=== PATIENT | male | born 1990 | race African-American/Black ===

== ENCOUNTER 2017-03-10 16:30 | Emergency (ER) | payer BC ==
[~2017-03-10] VITALS: Ht 193 cm; Wt 100.2 kg
[2017-03-10 17:09] LABS: HEMATOCRIT 45.6 % (38.0-50.0); MCHC 34.2 G/DL (30.0-36.0); MCV 90.5 FL (86-99); MEAN PLAT.VOLUME 9.6 uM^3 (9.0-12.4); PLATELET COUNT 173 K/uL (156-360); RBC DIS.WIDTH-SD 42.8 % (39-53); RED BLOOD COUNT 5.04 M/uL (4.00-5.50); WHITE BLOOD COUNT 10.9 K/uL (4.1-10.2)
[2017-03-10 17:21] LABS: CHLORIDE 106 mEq/L (99-109); POTASSIUM 3.7 mEq/L (3.7-5.4); SODIUM 138 mEq/L (136-147)
[2017-03-10 17:23] LABS: GLUCOSE 90 mg/dL (70-99)
[2017-03-10 17:24] LABS: ANION GAP 6 MEQ/L (2-14)
[2017-03-10 17:28] LABS: UREA NITROGEN (BUN) 12 mg/dL (9-23)
[2017-03-10 17:29] LABS: GFR ESTIMATE (CALCULATED) > 59 mL/min/
[2017-03-10 17:32] LABS: TROP-I INTERPRETATION NEGATIVE; TROPONIN-I < 0.01 ng/mL (0.0-0.30)
[2017-03-10] MEDS ORDERED: MOTRIN800 MG PO (17:43)
[2017-03-10] MEDS ORDERED: TRAMADOL HCL50 MG PO (17:44)
[2017-03-10] MEDS ORDERED: SKELAXIN800 MG PO (17:44)
[2017-03-10 18:03] VITALS: BP 128/77
== END 2017-03-10 18:06 | disposition home or self-care (01) ==
LOC: EME 16:30
PROVIDERS: Physician Assistant
DX: R09.1 Pleurisy (principal); J02.9 Acute pharyngitis, unspecified; J45.909 Unspecified asthma, uncomplicated; Z82.49 Family history of ischemic heart disease and other diseases of the circulatory system
CPT/HCPCS: 71020; 80048; 84484; 85027; 85379; 87651 90; 93005; 99281; 99284; J1885